=== PATIENT | male | born 1960 | race Caucasian/White ===

== ENCOUNTER 2017-02-28 12:47 | Outpatient (CLI) | payer MEDICAID | END 2017-02-28 12:48 | disposition short-term general hospital (02) | LOC: EMS 12:47 | PROVIDERS: ATTEND Surgery | DX: R07.9 Chest pain, unspecified (principal) | CPT/HCPCS: A0425; A0427 ==

== ENCOUNTER 2017-10-27 01:16 | Inpatient (IN) | payer MEDICAID, OTHER ==
[2017-10-27 01:50] LABS: BASOPHILS # (AUTO) 0.1 10^3/uL (0.0-0.1); BASOPHILS % (AUTO) 1.2 %; EOSINOPHILS # (AUTO) 0.2 10^3/uL (0.0-0.7); EOSINOPHILS % (AUTO) 3.9 %; HGB - HEMOGLOBIN 14.8 g/dL (14.0-18.0); LYMPHOCYTES % (AUTO) 16.2 %; MEAN CORPUSCULAR HEMOGLOBIN 27.7 pg (27.0-31.0); MEAN CORPUSCULAR VOLUME 79.2 fL (80.0-94.0); MEAN PLATELET VOLUME 8.9 fL (7.4-11.4); MONOCYTES # (AUTO) 0.7 10^3/uL (0.0-1.0); MONOCYTES % (AUTO) 12.1 %; NEUTROPHILS # (AUTO) 4.1 10^3/uL (1.5-6.6); NEUTROPHILS % (AUTO) 66.6 %; PLT - PLATELET COUNT 138 10^3/uL (130-450); RED BLOOD COUNT 5.33 10^6/uL (4.70-6.10); RED CELL DISTRIBUTION WIDTH 14.8 % (12.0-15.0); WHITE BLOOD COUNT 6.2 x10^3/uL (4.8-10.8)
[2017-10-27] MEDS ORDERED: SODIUM CHLORIDE 0.9% 1,000 ML IV ONE (01:55)
[2017-10-27] MEDS ORDERED: cefTRIAXone 1 GM in SODIUM CHLORIDE 0.9% MINIBAG 100 ML IV STA (01:55)
[2017-10-27] MEDS ORDERED: DEXAMETHASONE 10 MG/ML VIAL IVP STA (01:55)
--- NOTE | 2017-10-27 01:58 | ED Physician Documentation ---
PD HPI DYSPNEA - Stated complaint Stated Complaint: DIFF BREATHING - Chief complaint Chief Complaint: Resp - History obtained from History obtained from: Patient, Family - History of Present Illness Timing - onset: How many days ago (5) Timing - onset during: Rest Timing - duration: Days (5) Timing - details: Gradual onset, Still present Inciting event(s): URI, Other (severe stress) Improved by: O2, Rest, Sitting up Worsened by: Exertion, Coughing Associated symptoms: Fever, Cough, Chest pain / discomfort, Diaphoresis Similar symptoms before: Has not had sx before Recently seen: Not recently seen - Additional information Additional information: 57-year-old male with a history of previous paroxysmal atrial fibrillation has developed acute congestion cough fever and shortness of breath over the past 5 days. He had a very stressful incident 2 days ago when he found his father on the floor of his apartment and he had apparently been there several days and was decomposing. The hazmat team had to be called into clean up the mess. The patient was sick prior to this and he has had worsening of this feels lightheaded and dizzy and is having trouble getting a breath. Review of Systems Constitutional: reports: Fever, Chills, Myalgias, Fatigue Eyes: denies: Decreased vision Ears: denies: Ear pain Nose: reports: Rhinorrhea / runny nose, Congestion Throat: denies: Sore throat Cardiac: reports: Chest pain / pressure Respiratory: reports: Dyspnea, Cough GI: denies: Nausea, Vomiting : denies: Dysuria Skin: denies: Rash Musculoskeletal: denies: Neck pain, Back pain, Extremity pain Neurologic: reports: Generalized weakness, Headache. denies: Focal weakness, Numbness PD PAST MEDICAL HISTORY - Past Medical History Past Medical History: Yes Cardiovascular: Hypertension, Atrial fibrillation Endocrine/Autoimmune: None Psych: None Musculoskeletal: Osteoarthritis, Chronic back pain - Past Surgical History Past Surgical History: Yes Ortho: Carpal Tunnel surgery - Present Medications Home Medications: Ambulatory Orders Medication Instructions Recorded Confirmed Cartia Xt Er 240 mg PO DAILY 10/27/17 hydroCHLOROthiazide 1 tab PO DAILY 10/27/17 [Hydrochlorothiazide] - Allergies Allergies/Adverse Reactions: Allergies Allergy/AdvReac Type Severity Reaction Status Date / Time cefaclor [From [facility]] Allergy Hives Verified 10/27/17 01:46 - Social History Does the pt smoke?: No Smoking Status: Never smoker Does the pt drink ETOH?: No Does the pt have substance abuse?: No - Immunizations Immunizations are current?: Yes PD ED PE NORMAL - Vitals Vital signs reviewed: Yes (Febrile tachycardic and marked hypertension) - General General: Alert and oriented X 3, Well developed/nourished, Other (57-year-old male with parched lips and nasal cannula oxygen is alert and interactive and hot to the touch.) - HEENT HEENT: Atraumatic, PERRL, EOMI, Other (Both TMs are erythematous along the umbo with flattening of the TM.The mucous membranes are parched) - Neck Neck: Supple, no meningeal sign, No bony TTP - Cardiac Cardiac: No murmur, Other (Regular tachycardia.) - Respiratory Respiratory: Other (Tachypneic at rest with diminished breath sounds) - Abdomen Abdomen: Soft, Non tender - Back Back: No CVA TTP, No spinal TTP - Derm Derm: Normal color, Warm and dry, No rash - Extremities Extremities: No deformity, No edema - Neuro Neuro: No motor deficit, No sensory deficit Eye Opening: Spontaneous Motor: Obeys Commands Verbal: Oriented GCS Score: 15 - Psych Psych: Normal mood, Normal affect Results - Vitals Vitals: Vital Signs - 24 hr 10/27/17 10/27/17 01:18 01:31 Temperature 38.2 C H 37.9 C H Heart Rate 107 H 109 H Respiratory 24 21 Rate Blood Pressure 208/117 H 173/113 H O2 Saturation 93 94 Oxygen O2 Source Nasal cannula Oxygen Flow Rate 2 - EKG (time done) 0127 Rate: Rate (enter#) (107) Rhythm: LAE QRS: LVH Ischemia: ST elevation c/w repol (V2-4), Q waves Compare to prior EKG: Changed from prior EKG (SPT 02-28-17 (EMS tracing) rhythm has converted and q waves inferiorly has developed. ) Computer interpretation: Agree with computer - Labs Labs: Laboratory Tests 10/27/17 10/27/17 10/27/17 01:30 01:30 01:30 WBC 6.2 RBC 5.33 Hgb 14.8 Hct 42.2 MCV 79.2 L MCH 27.7 MCHC 35.0 RDW 14.8 Plt Count 138 MPV 8.9 Neut # 4.1 Lymph # 1.0 L Dunn # 0.7 Eos # 0.2 Baso # 0.1 Absolute Nucleated RBC 0.00 Nucleated RBC % 0.0 Sodium 139 Potassium 3.6 Chloride 105 Carbon Dioxide 23 Anion Gap 11.0 BUN 17 Creatinine 1.4 H Estimated GFR (MDRD) 52 L Glucose 148 H Calcium 9.4 Total Bilirubin 0.6 AST 26 ALT 30 Alkaline Phosphatase 74 Troponin I 0.05 Total Protein 7.0 Albumin 3.8 Globulin 3.2 Albumin/Globulin Ratio 1.2 Lipase 31 - Rads (name of study) 2 veiw chest Radiology: Prelim report reviewed Procedures - IVC sono (time) 0156 Bedside IVC sono: IVC measures (cm) (1.45), IVC collapsed c insp (cm) (complete) , Dehydration (est 1 liter down) PD MEDICAL DECISION MAKING - ED course Complexity details: reviewed old records, reviewed results, re-evaluated patient , considered differential, d/w patient, d/w family ED course: 57-year-old male with a history of paroxysmal atrial fibrillation and hypertension presents with 5 days of cough and fever with hypoxia today. On examination he is found to have bilateral otitis and he is dehydrated and he is administered intravenous fluids dexamethasone and Rocephin a chest x-ray demonstrates an infiltrate in the right base.He is administered oxygen on arrival and he has improvement with the slightest amount of intravenous fluid.Dr. Davis is consulted in the case for admission and she graciously agrees to place patient in the hospital and treat his multiple problems. He does have hypertension that is uncontrolled he has an incomplete workup of his heart disease and he does appear to present late for his medical problems. Departure - Departure Disposition: [address] [facility] DC/Xfer Clinical Impression: Dehydration Pneumonia Qualifiers: Pneumonia type: due to unspecified organism Laterality: right Lung location: lower lobe of lung Qualified Code(s): J18.1 - Lobar pneumonia, unspecified organism Otitis media Qualifiers: Otitis media type: suppurative Chronicity: acute Laterality: bilateral Recurrence: not specified as recurrent Spontaneous tympanic membrane rupture: without spontaneous rupture Qualified Code(s): H66.003 - Acute suppurative otitis media without spontaneous rupture of ear drum, bilateral Hypertension Qualifiers: Hypertension type: essential hypertension Qualified Code(s): I10 - Essential ( primary) hypertension Condition: Stable
[2017-10-27 02:00] LABS: ALBUMIN 3.8 g/dL (3.2-5.5); ALBUMIN/GLOBULIN RATIO 1.2 (1.0-2.2); BILIRUBIN,TOTAL 0.6 mg/dL (0.2-1.0); CALCIUM 9.4 mg/dL (8.5-10.3); CREATININE 1.4 mg/dL (0.6-1.2)
--- NOTE | 2017-10-27 02:20 | XRAY Report ---
EXAM: CHEST RADIOGRAPHY EXAM DATE: 10/27/2017 02:12 AM. CLINICAL HISTORY: Fever and hypoxia. COMPARISON: 11/05/2013. TECHNIQUE: 2 views. FINDINGS: Lungs/Pleura: Mild atelectasis or infiltrate at the right base. No pleural effusion seen. No pneumoth orax. Mediastinum: Mild cardiomegaly. Other: None. IMPRESSION: 1. Mild cardiomegaly with mild right basilar atelectasis or infiltrate. [facility] Referring Provider Line: [phone] SITE ID: [id number]
[2017-10-27] MEDS ORDERED: PROCHLORPERAZINE 10 MG/2 ML VIAL IVP PRN (02:33)
[2017-10-27] MEDS ORDERED: SODIUM CHLORIDE FLUSH 0.9% 10 ML SYRINGE IVP PRN (02:33)
[2017-10-27] MEDS ORDERED: ZOLPIDEM 5 MG TABLET PO PRN (02:33)
[2017-10-27] MEDS ORDERED: MORPHINE 2 MG/ML CARPUJECT IVP PRN (02:33)
[2017-10-27] MEDS ORDERED: NITROGLYCERIN 2% PASTE TOP STA (02:43)
[2017-10-27] MEDS ORDERED: NITROGLYCERIN SL 0.4 MG TABLET SL STA (02:44)
[2017-10-27] MEDS ORDERED: diltiaZEM INJ 125 MG in DEXTROSE 5% 100 ML IV SCH (03:00)
[2017-10-27 03:06] LABS: CHOL/HDL RATIO 6.1 (<5.0); CHOLESTEROL 121 mg/dL; HDL CHOLESTEROL 20 mg/dL; LDL CHOLESTEROL,CALCULATED 81 mg/dL; LDL/HDL RATIO 4.1 (<3.6); VLDL CHOLESTEROL 20 mg/dL
[2017-10-27] MEDS: ACETAMINOPHEN 325 MG TABLET PO PRN ×2 (03:50→08:21)
[2017-10-27] MEDS: DEXTROSE 5%-0.9% NACL 1,000 ML IV SCH ×2 (03:53→14:56)
[2017-10-27] MEDS: METOPROLOL 5 MG/5 ML VIAL IVP SCH ×3 (03:53→14:04)
[2017-10-27] MEDS: guaiFENesin 600 MG TABLET PO SCH ×3 (04:23→21:10)
--- NOTE | 2017-10-27 04:48 | HISTORY & PHYSICAL EXAMINATION ---
DATE OF SERVICE: 10/27/2017 Physician: Elmira Newell MD HISTORY OF PRESENT ILLNESS: This is a 57-year-old, white male with a history of hypertension, paroxysmal, AFib, had recent family trauma when he found his father on the floor and the body was already composing, HAZMAT needed to be called. Even before this sad incident, for 5 days, the patient has had a cough with minimal sputum production, a fever, intermittent palpitations, and then developed severe shortness of breath today and presented to the emergency room. He was found to have an infiltrate, severely elevated blood pressure despite taking medications, and acute renal failure. The patient is being admitted to the ICU for management of unstable angina, community-acquired pneumonia and malignant hypertension. In February 2017, the patient had rapid atrial fibrillation and required transfer to [facility], where he describes having cardioversion x2. An echo was done and some "valve disease was found". He was put on daily aspirin and diltiazem ER, and advised to have an outpatient stress test and follow up at the [facility], [place]. The patient did not go to the [facility] because he was not happy with the clinic and the location was too far. He never had a stress test. He was taking the diltiazem and the daily aspirin, however. Over this past 9 months, he describes recurrences of palpitations that would make him dizzy that would occur approximately once every month. Over the last month, they have occurred approximately twice a week. In the last month, he sought out the help of a new primary care doctor who added HCTZ to his regimen. He has been compliant with these medications. The patient does develop angina, when he gets palpitations and he had an episode of angina that occurred when he saw his father's , decomposing body 3 days ago and reports 1 prolonged episode of angina when he was driving home from work in [place] to [place], along with weakness, pain across his shoulders and shoulder blades, and thought about driving to the emergency room but did not. He was able to drive home. He was so week that his had to help him out of the car, took a hot bath for 2 hours and then felt better, but still had pain across his shoulders for 2 or 3 days. PAST MEDICAL HISTORY: Paroxysmal atrial fibrillation; hypertension, poorly controlled; probable unstable angina by description. FAMILY HISTORY: Coronary artery disease with bypass surgery in his father who also needed a pacemaker and this is the gentleman who recently unwitnessed. On the maternal side, there is also heart disease in a grandparent. The patient has several siblings, one has scoliosis. The patient has 2 children who have allergies. He lives with his . SOCIAL HISTORY: He never smoked cigarettes, uses rare marijuana, drinks no alcohol. 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 REVIEW OF SYSTEMS: Comprehensive review of systems was performed and the pertinent positives are as listed above. ALLERGIES: CEFACLOR THAT CAUSED HIVES. MEDICATIONS AT HOME 1. Cartia ER 240 mg p.o. daily. 2. Hydrochlorothiazide 25 mg p.o. daily. 3. Aspirin, unknown dose daily. PHYSICAL EXAMINATION GENERAL: White male who is in no distress currently in the ICU. VITAL SIGNS: In the emergency room he had respiratory rate of 24, O2 saturation 89% on room air, heart rate 107 in sinus tachycardia, febrile at 38.2, and blood pressure of 208/117. HEENT: In the ER showed redness of his tympanic membrane. His oral mucosa is moist. NECK: Shows no thyromegaly, adenopathy, carotid bruits or JVD. CHEST: Diminished breath sounds at the right base, otherwise clear. No wheezing. HEART: Heart sounds are normal. No audible murmur. ABDOMEN: Soft, obese. No organomegaly or tenderness. EXTREMITIES: Trace pedal edema. No clubbing or cyanosis. NEUROLOGIC: Intact. LABORATORIES: Normal electrolytes, BUN 17, creatinine 1.4. There was no magnesium. Total cholesterol 121, LDL 81, triglycerides 101. Negative influenza serology. White blood count 6.2 with a normal differential. Hemoglobin 14.8 with a low MCV of 79. Platelet count normal. No INR was done. EKG: Sinus tachycardia. Inferior Q-waves are present which were not present on his February 2017 EKG, when he was in atrial fibrillation. Chest x-ray: Right lower lobe infiltrate. IMPRESSION/DIAGNOSES 1. Community-acquired pneumonia with desaturation and nonproductive cough. 2. Unstable angina with accelerating symptoms. 3. Poorly controlled hypertension. 4. Acute renal failure. 5. Tachycardia. 6. History of paroxysmal atrial fibrillation, on aspirin (CHADS score equals 1 for hypertension). PLAN: Place the patient in the ICU for close monitoring, and especially management of his hypertension. Begin beta blockers which will help his angina, as well as heart rate and blood pressure. Begin nitro paste, which will help his angina and blood pressure. Continue his p.o. Cardizem. Continue his daily aspirin for angina and for atrial fibrillation stroke prophylaxis. Add heparin therapeutic subcutaneous dose because of the angina. Cycle troponins x3 to rule out an acute event and follow his EKG for changes. Obtain an echo. Treat his pneumonia with IV ceftriaxone and IV Zithromax. Obtain sputum and blood cultures prior to antibiotics. Add Mucinex and Robitussin as needed for his symptoms. Supplemental oxygen and if pulmonary toilet is needed this will be ordered. The patient will need transfer for coronary angiogram given his accelerated angina symptoms, abnormal EKG already showing evidence of a scar, but this will have to follow resolution of his pneumonia. DEEP VENOUS THROMBOSIS PROPHYLAXIS: SCDs and therapeutic subcutaneous heparin. CODE STATUS: FULL CODE. ATTESTATION: The patient is expected to be discharged or transferred to another facility within 96 hours: Yes. TD: 10/27/2017 04:47 LISA
[2017-10-27] MEDS ORDERED: AZITHROMYCIN INJ 500 MG in SODIUM CHLORIDE 0.9% 250 ML IV SCH (06:00)
[2017-10-27 06:01] LABS: BASOPHILS % (AUTO) 0.3 %; EOSINOPHILS % (AUTO) 0.4 %; HGB - HEMOGLOBIN 14.6 g/dL (14.0-18.0); LYMPHOCYTES # (AUTO) 0.6 10^3/uL (1.5-3.5); LYMPHOCYTES % (AUTO) 7.9 %; MEAN CORPUSCULAR HEMOGLOBIN 26.8 pg (27.0-31.0); MEAN CORPUSCULAR HGB CONC 33.6 g/dL (32.0-36.0); MEAN CORPUSCULAR VOLUME 79.9 fL (80.0-94.0); MONOCYTES # (AUTO) 0.1 10^3/uL (0.0-1.0); NEUTROPHILS # (AUTO) 6.3 10^3/uL (1.5-6.6); NEUTROPHILS % (AUTO) 89.4 %; PLT - PLATELET COUNT 150 10^3/uL (130-450); RED BLOOD COUNT 5.43 10^6/uL (4.70-6.10); RED CELL DISTRIBUTION WIDTH 14.9 % (12.0-15.0)
[2017-10-27 06:05] LABS: CALCIUM 8.9 mg/dL (8.5-10.3); CREATININE 1.2 mg/dL (0.6-1.2); MAGNESIUM 1.8 mg/dL (1.7-2.8)
[2017-10-27 06:07] LABS: INR 1.1 (0.8-1.2); PT - PROTHROMBIN TIME 12.4 secs (9.9-12.6)
[2017-10-27] MEDS: HEPARIN 5,000 UNIT/ML VIAL SUBQ SCH ×2 (06:14→14:07)
[2017-10-27] MEDS: SODIUM CHLORIDE FLUSH 0.9% 10 ML SYRINGE IVP SCH ×3 (06:14→21:11)
[2017-10-27] MEDS ORDERED: ASPIRIN EC 325 MG TABLET PO SCH (08:00)
[2017-10-27] MEDS: diltiaZEM CD 120 MG CAPSULE PO SCH (08:21)
[2017-10-27] MEDS: AZITHROMYCIN INJ 500 MG in SODIUM CHLORIDE 0.9% 250 ML IV SCH (08:58)
[2017-10-27] MEDS: FAMOTIDINE 20 MG TABLET PO SCH (08:58)
--- NOTE | 2017-10-27 10:11 | XRAY Report ---
FRONTAL CHEST: 10/27/2017 CLINICAL INDICATION: Followup pneumonia. COMPARISON: Film of 0157 hours the same day. FINDINGS: Frontal view of the chest demonstrates a mildly enlarged cardiac silhouette. Patchy atelectasis or infiltrate at the right base appears unchanged. No new consolidation, effusion, or pneumothorax is present. IMPRESSION: NO EVIDENT CHANGE IN PATCHY RIGHT BASILAR AIRSPACE DISEASE AND MILD CARDIOMEGALY. TD: 10/27/2017 10:10
[2017-10-27] MEDS ORDERED: DEXTROSE 5%-0.9% NACL 1,000 ML IV SCH (20:24)
[2017-10-27] MEDS: ENOXAPARIN 120 MG/0.8 ML SYRINGE SUBQ SCH (21:09)
[2017-10-27] MEDS: ISOSORBIDE MONONITRATE ER 30 MG TABLET PO SCH (21:09)
[2017-10-27] MEDS: CARVEDILOL 12.5 MG TABLET PO SCH (21:10)
[2017-10-27] MEDS: cefTRIAXone 1 GM in SODIUM CHLORIDE 0.9% MINIBAG 100 ML IV SCH (21:11)
[2017-10-28 04:45] LABS: BASOPHILS % (AUTO) 0.2 %; HGB - HEMOGLOBIN 13.7 g/dL (14.0-18.0); LYMPHOCYTES # (AUTO) 1.2 10^3/uL (1.5-3.5); LYMPHOCYTES % (AUTO) 18.5 %; MEAN CORPUSCULAR HEMOGLOBIN 27.2 pg (27.0-31.0); MEAN CORPUSCULAR HGB CONC 34.4 g/dL (32.0-36.0); MEAN CORPUSCULAR VOLUME 79.2 fL (80.0-94.0); MEAN PLATELET VOLUME 9.3 fL (7.4-11.4); MONOCYTES # (AUTO) 0.5 10^3/uL (0.0-1.0); MONOCYTES % (AUTO) 7.5 %; NEUTROPHILS # (AUTO) 4.6 10^3/uL (1.5-6.6); NEUTROPHILS % (AUTO) 73.8 %; PLT - PLATELET COUNT 163 10^3/uL (130-450); RED BLOOD COUNT 5.04 10^6/uL (4.70-6.10); RED CELL DISTRIBUTION WIDTH 14.7 % (12.0-15.0); WHITE BLOOD COUNT 6.2 x10^3/uL (4.8-10.8)
[2017-10-28 04:53] LABS: ALBUMIN 3.6 g/dL (3.2-5.5); ALBUMIN/GLOBULIN RATIO 1.1 (1.0-2.2); ALKALINE PHOSPHATASE 64 IU/L (42-121); ALT ALANINE AMINOTRANSFERASE 26 IU/L (10-60); AST ASPARTATE AMINOTRANSFERASE 21 IU/L (10-42); BILIRUBIN,TOTAL 0.3 mg/dL (0.2-1.0); BUN - BLOOD UREA NITROGEN 20 mg/dL (6-20); CALCIUM 9.1 mg/dL (8.5-10.3); CARBON DIOXIDE - CO2 21 mmol/L (21-32); CHLORIDE 106 mmol/L (101-111); CREATININE 1.1 mg/dL (0.6-1.2); GFR - MDRD 69 (>89); GLUCOSE 217 mg/dL (70-100); MAGNESIUM 2.1 mg/dL (1.7-2.8); PHOSPHORUS 2.4 mg/dL (2.5-4.6); SODIUM 138 mmol/L (135-145); TOTAL PROTEIN 6.8 g/dL (6.7-8.2)
[2017-10-28 04:59] LABS: HB2 TOTAL 15.1 g/dL; HEMOGLOBIN A1C 0.81 g/dL; HEMOGLOBIN A1C % 7.1 % (4.6-6.2)
[2017-10-28] MEDS: SODIUM CHLORIDE FLUSH 0.9% 10 ML SYRINGE IVP SCH ×3 (06:10→20:44)
[2017-10-28] MEDS: NEUTRA-PHOS 250 MG TABLET PO SCH ×2 (08:17→09:50)
[2017-10-28] MEDS: ISOSORBIDE MONONITRATE ER 30 MG TABLET PO SCH ×2 (08:59→20:41)
[2017-10-28] MEDS: FAMOTIDINE 20 MG TABLET PO SCH (08:59)
[2017-10-28] MEDS: diltiaZEM CD 120 MG CAPSULE PO SCH (08:59)
[2017-10-28] MEDS: CARVEDILOL 12.5 MG TABLET PO SCH ×2 (09:00→20:41)
[2017-10-28] MEDS: ENOXAPARIN 120 MG/0.8 ML SYRINGE SUBQ SCH ×2 (09:00→20:41)
[2017-10-28] MEDS: ASPIRIN EC 325 MG TABLET PO SCH (09:00)
[2017-10-28] MEDS: cefTRIAXone 1 GM in SODIUM CHLORIDE 0.9% MINIBAG 100 ML IV SCH (09:01)
[2017-10-28] MEDS: guaiFENesin/DEXTROMETHORPHAN 10 ML UDC PO PRN (09:49)
[2017-10-28] MEDS: guaiFENesin 600 MG TABLET PO SCH ×2 (09:53→20:41)
[2017-10-28] MEDS: AZITHROMYCIN INJ 500 MG in SODIUM CHLORIDE 0.9% 250 ML IV SCH (10:04)
[2017-10-28] MEDS: ACETAMINOPHEN 325 MG TABLET PO PRN ×2 (10:28→18:26)
--- NOTE | 2017-10-28 13:31 | PROVIDER PROGRESS NOTE ---
Subjective - Prog Note Date Prog Note Date: 10/28/17 Prog Note Time: 13:30 - Subjective Pt reports feeling: Improved Current Medications - Current Medications Current Medications: Acetaminophen, aspirin, azithromycin, carvedilol, ceftriaxone, diltiazem, Lovenox, famotidine, guaifenesin, dextromethorphan,Isosorbide, morphine, nitroglycerin, prochlorperazine, sodium chloride, zolpidem Objective - Vital Signs/Intake & Output Reviewed Vital Signs: Yes Vital Signs: Vital Signs Temp Pulse Resp BP Pulse Ox 10/28/17 13:00 49 L 6 L 74 L 10/28/17 11:00 36.8 C 72 24 145/95 H 97 10/28/17 10:09 67 163/95 H 96 Intake & Output: Intake & Output 10/25/17 10/26/17 10/27/17 10/28/17 23:59 23:59 23:59 23:59 Intake Total 5895.000 1920 Output Total 3250 850 Balance 2645.000 1070 - Objective General Appearance: positive: No acute distress, Alert Eyes Bilateral: positive: Normal inspection, PERRL, EOMI, No lid inflammation, Conjunctivae nml, No scleral icterus ENT: positive: ENT inspection nml, Pharynx nml, No signs of dehydration Neck: positive: Nml inspection, Thyroid nml, No JVD, Trachea midline. negative : Thyromegaly Respiratory: positive: Chest non-tender, No respiratory distress, Breath sounds nml. negative: Wheezes, Rales, Rhonchi Cardiovascular: positive: Regular rate & rhythm, No murmur, No gallop Abdomen: positive: Non-tender, No organomegaly, Nml bowel sounds, No distention. negative: Guarding, Rebound Back: positive: Nml inspection. negative: CVA tenderness (R), CVA tenderness (L ) Skin: positive: Color nml, No rash, Warm, Dry. negative: Cyanosis Extremities: positive: Non-tender, Full ROM, Nml appearance, No pedal edema Neurologic/Psychiatric: positive: Oriented x3, CN's nml (2-12), Motor nml, Sensation nml, Mood/affect nml - Lab Results Fish Bones: 10/28/17 04:20 10/28/17 04:20 Other Labs: Lab Results x24hrs 10/28/17 10/28/17 10/28/17 Range/Units 11:53 04:20 04:20 WBC (4.8-10.8) x10^3/uL RBC (4.70-6.10) 10^6/uL Hgb (14.0-18.0) g/dL Hct (42.0-52.0) % MCV (80.0-94.0) fL MCH (27.0-31.0) pg MCHC (32.0-36.0) g/dL RDW (12.0-15.0) % Plt Count (130-450) 10^3/uL MPV (7.4-11.4) fL Neut # (1.5-6.6) 10^3/uL Lymph # (1.5-3.5) 10^3/uL Schuyler # (0.0-1.0) 10^3/uL Eos # (0.0-0.7) 10^3/uL Baso # (0.0-0.1) 10^3/uL Absolute Nucleated RBC x10^3/uL Nucleated RBC % /100WBC Sodium 138 (135-145) mmol/L Potassium 3.6 (3.5-5.0) mmol/L Chloride 106 (101-111) mmol/L Carbon Dioxide 21 (21-32) mmol/L Anion Gap 11.0 (6-13) BUN 20 (6-20) mg/dL Creatinine 1.1 (0.6-1.2) mg/dL Estimated GFR (MDRD) 69 L (>89) Glucose 217 H (70-100) mg/dL POC Whole Bld Glucose 192 H (70 - 100) mg/dL Glycated Hemoglobin 7.1 H (4.6-6.2) % Estim Average Glucose 157 H (70-100) Calcium 9.1 (8.5-10.3) mg/dL Ionized Calcium NO Phosphorus 2.4 L (2.5-4.6) mg/dL Magnesium 2.1 (1.7-2.8) mg/dL Total Bilirubin 0.3 (0.2-1.0) mg/dL AST 21 (10-42) IU/L ALT 26 (10-60) IU/L Alkaline Phosphatase 64 (42-121) IU/L Total Protein 6.8 (6.7-8.2) g/dL Albumin 3.6 (3.2-5.5) g/dL Globulin 3.2 (2.1-4.2) g/dL Albumin/Globulin Ratio 1.1 (1.0-2.2) 10/28/17 Range/Units 04:20 WBC 6.2 (4.8-10.8) x10^3/uL RBC 5.04 (4.70-6.10) 10^6/uL Hgb 13.7 L (14.0-18.0) g/dL Hct 40.0 L (42.0-52.0) % MCV 79.2 L (80.0-94.0) fL MCH 27.2 (27.0-31.0) pg MCHC 34.4 (32.0-36.0) g/dL RDW 14.7 (12.0-15.0) % Plt Count 163 (130-450) 10^3/uL MPV 9.3 (7.4-11.4) fL Neut # 4.6 (1.5-6.6) 10^3/uL Lymph # 1.2 L (1.5-3.5) 10^3/uL Schuyler # 0.5 (0.0-1.0) 10^3/uL Eos # 0.0 (0.0-0.7) 10^3/uL Baso # 0.0 (0.0-0.1) 10^3/uL Absolute Nucleated RBC 0.01 x10^3/uL Nucleated RBC % 0.1 /100WBC Sodium (135-145) mmol/L Potassium (3.5-5.0) mmol/L Chloride (101-111) mmol/L Carbon Dioxide (21-32) mmol/L Anion Gap (6-13) BUN (6-20) mg/dL Creatinine (0.6-1.2) mg/dL Estimated GFR (MDRD) (>89) Glucose (70-100) mg/dL POC Whole Bld Glucose (70 - 100) mg/dL Glycated Hemoglobin (4.6-6.2) % Estim Average Glucose (70-100) Calcium (8.5-10.3) mg/dL Ionized Calcium Phosphorus (2.5-4.6) mg/dL Magnesium (1.7-2.8) mg/dL Total Bilirubin (0.2-1.0) mg/dL AST (10-42) IU/L ALT (10-60) IU/L Alkaline Phosphatase (42-121) IU/L Total Protein (6.7-8.2) g/dL Albumin (3.2-5.5) g/dL Globulin (2.1-4.2) g/dL Albumin/Globulin Ratio (1.0-2.2) - Diagnostic Imaging Diagnostic Imaging Results: positive: Final report reviewed Diagnostic Imaging Comments: EXAM: CHEST RADIOGRAPHY EXAM DATE: 10/27/2017 02:12 AM. CLINICAL HISTORY: Fever and hypoxia. COMPARISON: 11/05/2013. TECHNIQUE: 2 views. FINDINGS: Lungs/Pleura: Mild atelectasis or infiltrate at the right base. No pleural effusion seen. No pneumothorax. Mediastinum: Mild cardiomegaly. Other: None. IMPRESSION: 1. Mild cardiomegaly with mild right basilar atelectasis or infiltrate. EXAM: [id number] ([id number]) FRONTAL CHEST: 10/27/2017 CLINICAL INDICATION: Followup pneumonia. COMPARISON: Film of 0157 hours the same day. FINDINGS: Frontal view of the chest demonstrates a mildly enlarged cardiac silhouette. Patchy atelectasis or infiltrate at the right base appears unchanged. No new consolidation, effusion, or pneumothorax is present. IMPRESSION: NO EVIDENT CHANGE IN PATCHY RIGHT BASILAR AIRSPACE DISEASE AND MILD CARDIOMEGALY Assessment/Plan - Problem List (1) Pneumonia Impression: The patient's leukocyte count 6.2, he is afebrile, and is breathing easily on room air. We will continue ceftriaxone and azithromycin. Qualifiers: Pneumonia type: due to unspecified organism Laterality: right Lung location: lower lobe of lung Qualified Code(s): J18.1 - Lobar pneumonia, unspecified organism (2) Coronary artery disease Impression: It appears that the patient has had a recent myocardial infarction, inferior wall, with new wall motion abnormality and a new Q-wave. It is believed that this event happened about 3 or 4 months ago. (3) Unstable angina Impression: Patient denies any chest pain or shortness of breath at this time.There have not been any new events of unstable angina since his admission to the hospital. (4) Acute renal failure Impression: Corrected, creatinine 1.1 today. (5) Paroxysmal A-fib Impression: No known atrial fibrillation events this hospitalization. Pt has had several runs of V tach however, all seemingly occuring during sleep apnea events. (6) Diabetes mellitus Impression: Newly diagnosed, HgbA1C is 7.1, which indicates an average BS of 157. I have ordered diabetes education, will start with lifestyle modification. (7) Hypertension Impression: The patient is already on Imdur, Cardizem, and Coreg. I will add a diuretic, HCTZ. Qualifiers: Hypertension type: essential hypertension Qualified Code(s): I10 - Essential (primary) hypertension (8) Microcytosis Impression: Patient barely qualifies for this diagnosis with an MCV of 79.9. Will do an iron study panel. (9) Sleep apnea Impression: Pt was diagnosed with sleep apnea approximately 10 years ago, has been noncompliant the entire time. Patient has had multiple runs of ventricular tachycardia during apneic events during this hospitalization. I have had several discussions with him regarding CPAP and its necessity. I have ordered a CPAP machine for him and respiratory therapy is working on finding a mask that does not cause him too much distress.
[2017-10-28] MEDS: hydroCHLOROthiazide 25 MG TABLET PO SCH (14:34)
[2017-10-28 14:39] LABS: % IRON SATURATION 19 % (20-50); IRON 54 ug/dL (45-182); TOTAL IRON BINDING CAPACITY 284 ug/dL (250-450); TRANSFERRIN 203 mg/dL (180-329)
[2017-10-28] MEDS: NITROGLYCERIN SL 0.4 MG TABLET SL PRN ×4 (15:48→18:41)
[2017-10-28] MEDS ORDERED: FUROSEMIDE 100 MG/10 ML VIAL IVP ONE (18:34)
[2017-10-28] MEDS: niCARdipine 20 MG/200 ML 20 MG/200 ML BAG IV SCH ×2 (18:50→21:00)
[2017-10-28] MEDS ORDERED: niCARdipine 20 MG/200 ML 20 MG/200 ML BAG IV ONE (18:51)
[2017-10-29] MEDS: niCARdipine 20 MG/200 ML 20 MG/200 ML BAG IV SCH ×3 (01:09→09:06)
[2017-10-29 05:49] LABS: ALBUMIN 4.1 g/dL (3.2-5.5); ALBUMIN/GLOBULIN RATIO 1.3 (1.0-2.2); ALKALINE PHOSPHATASE 65 IU/L (42-121); ALT ALANINE AMINOTRANSFERASE 32 IU/L (10-60); AST ASPARTATE AMINOTRANSFERASE 23 IU/L (10-42); BILIRUBIN,TOTAL 0.6 mg/dL (0.2-1.0); BUN - BLOOD UREA NITROGEN 20 mg/dL (6-20); CALCIUM 9.4 mg/dL (8.5-10.3); CARBON DIOXIDE - CO2 25 mmol/L (21-32); CHLORIDE 100 mmol/L (101-111); CREATININE 1.3 mg/dL (0.6-1.2); GFR - MDRD 57 (>89); GLUCOSE 139 mg/dL (70-100); SODIUM 139 mmol/L (135-145); TOTAL PROTEIN 7.2 g/dL (6.7-8.2)
[2017-10-29 06:09] LABS: MAGNESIUM 1.9 mg/dL (1.7-2.8); PHOSPHORUS 2.6 mg/dL (2.5-4.6)
[2017-10-29] MEDS: SODIUM CHLORIDE FLUSH 0.9% 10 ML SYRINGE IVP SCH ×3 (06:15→21:26)
[2017-10-29] MEDS ORDERED: POTASSIUM CHLORIDE 20 MEQ TABLET PO SCH (07:00)
[2017-10-29] MEDS ORDERED: LORazepam 2 MG/ML VIAL IVP PRN (09:12)
[2017-10-29] MEDS ORDERED: NIFEdipine ER 30 MG TABLET PO SCH (10:00)
[2017-10-29] MEDS: cefTRIAXone 1 GM in SODIUM CHLORIDE 0.9% MINIBAG 100 ML IV SCH (10:15)
[2017-10-29] MEDS: guaiFENesin/DEXTROMETHORPHAN 10 ML UDC PO PRN ×2 (10:18→10:23)
[2017-10-29] MEDS: diltiaZEM CD 120 MG CAPSULE PO SCH (10:20)
[2017-10-29] MEDS: FAMOTIDINE 20 MG TABLET PO SCH (10:21)
[2017-10-29] MEDS: ASPIRIN EC 325 MG TABLET PO SCH (10:21)
[2017-10-29] MEDS: hydroCHLOROthiazide 25 MG TABLET PO SCH (10:21)
[2017-10-29] MEDS: CARVEDILOL 12.5 MG TABLET PO SCH ×2 (10:21→21:21)
[2017-10-29] MEDS: ISOSORBIDE MONONITRATE ER 30 MG TABLET PO SCH ×2 (10:21→21:27)
[2017-10-29] MEDS: ENOXAPARIN 120 MG/0.8 ML SYRINGE SUBQ SCH ×2 (10:23→21:26)
[2017-10-29] MEDS: guaiFENesin 600 MG TABLET PO SCH ×2 (10:24→21:27)
[2017-10-29] MEDS: AZITHROMYCIN INJ 500 MG in SODIUM CHLORIDE 0.9% 250 ML IV SCH (11:20)
--- NOTE | 2017-10-29 18:17 | PROVIDER PROGRESS NOTE ---
Subjective - Prog Note Date Prog Note Date: 10/29/17 Prog Note Time: 15:25 - Subjective Pt reports feeling: No change (Patient feels well, no new complaints) Current Medications - Current Medications Current Medications: Acetaminophen, aspirin, azithromycin, Coreg, ceftriaxone, diltiazem, Lovenox, Pepcid, furosemide, Mucinex, hydrochlorothiazide, isosorbide, lorazepam, morphine, nifedipine, Nitroglycerin, potassium chloride, Compazine, sodium chloride, Ambien Objective - Vital Signs/Intake & Output Reviewed Vital Signs: Yes Vital Signs: Vital Signs Temp Pulse Resp BP BP Pulse Ox 10/29/17 17:00 75 21 115/67 96 10/29/17 15:00 36.8 C 75 19 128/74 90 L Intake & Output: Intake & Output 10/26/17 10/27/17 10/28/17 10/29/17 23:59 23:59 23:59 23:59 Intake Total 5895.000 2680.000 1765.0 Output Total 3250 4350 825 Balance 2645.000 -1670.000 940.0 - Objective General Appearance: positive: No acute distress, Alert Eyes Bilateral: positive: Normal inspection, PERRL, EOMI, No lid inflammation, Conjunctivae nml, No scleral icterus ENT: positive: ENT inspection nml, Pharynx nml, No signs of dehydration. negative: Oral lesions Neck: positive: Nml inspection, Thyroid nml, No JVD, Trachea midline. negative : Thyromegaly Respiratory: positive: Chest non-tender, No respiratory distress, Breath sounds nml. negative: Wheezes, Rales, Rhonchi Cardiovascular: positive: Regular rate & rhythm, No murmur, No gallop Abdomen: positive: Non-tender, No organomegaly, Nml bowel sounds, No distention. negative: Tenderness Back: positive: Nml inspection. negative: CVA tenderness (R), CVA tenderness (L ) Skin: positive: Color nml, No rash, Warm, Dry. negative: Cyanosis Extremities: positive: Non-tender, Full ROM, Nml appearance Neurologic/Psychiatric: positive: Oriented x3, CN's nml (2-12), Motor nml, Sensation nml, Mood/affect nml - Lab Results Fish Bones: 10/28/17 04:20 10/29/17 04:57 Other Labs: Lab Results x24hrs 10/29/17 10/29/17 Range/Units 04:57 04:57 Sodium 139 (135-145) mmol/L Potassium 3.0 L (3.5-5.0) mmol/L Chloride 100 L (101-111) mmol/L Carbon Dioxide 25 (21-32) mmol/L Anion Gap 14.0 H (6-13) BUN 20 (6-20) mg/dL Creatinine 1.3 H (0.6-1.2) mg/dL Estimated GFR (MDRD) 57 L (>89) Glucose 139 H (70-100) mg/dL Calcium 9.4 (8.5-10.3) mg/dL Ionized Calcium NO Phosphorus 2.6 (2.5-4.6) mg/dL Magnesium 1.9 (1.7-2.8) mg/dL Total Bilirubin 0.6 (0.2-1.0) mg/dL AST 23 (10-42) IU/L ALT 32 (10-60) IU/L Alkaline Phosphatase 65 (42-121) IU/L Total Protein 7.2 (6.7-8.2) g/dL Albumin 4.1 (3.2-5.5) g/dL Globulin 3.1 (2.1-4.2) g/dL Albumin/Globulin Ratio 1.3 (1.0-2.2) Assessment/Plan - Problem List (1) Pneumonia Impression: The patient's leukocyte count 6.2, he is afebrile, and is breathing easily on room air. We will continue ceftriaxone and azithromycin. Qualifiers: Pneumonia type: due to unspecified organism Laterality: right Lung location: lower lobe of lung Qualified Code(s): J18.1 - Lobar pneumonia, unspecified organism (2) Coronary artery disease Impression: It appears that the patient has had a recent myocardial infarction, inferior wall, with new wall motion abnormality and a new Q-wave. It is believed that this event happened about 3 or 4 months ago. The plan at this time is for the patient to be transferred Tuesday for an angiogram Tuesday. (3) Unstable angina Impression: Patient denies any chest pain or shortness of breath at this time.There have not been any new events of unstable angina since his admission to the hospital. (4) Acute renal failure Impression: The patient's creatinine yesterday was 1.1, it is 1.3 today. I have ordered some IV fluids to try to help hydrate the patient's kidneys. (5) Paroxysmal A-fib Impression: No known atrial fibrillation events this hospitalization. Pt has had several runs of V tach however, all seemingly occuring during sleep apnea events. The patient used the BiPAP machine last night for 2 hours. (6) Diabetes mellitus Impression: Newly diagnosed, HgbA1C is 7.1, which indicates an average BS of 157. I have ordered diabetes education, will start with lifestyle modification. Qualifiers: Diabetes mellitus complication status: with circulatory complication (7) Hypertension Impression: The patient was already on Imdur, Cardizem, and Coreg and I added a diuretic, HCTZ.Unfortunately this still was not effective enough and I had to place the patient a nicardipine drip. I converted him over to nifedipine this morning and his blood pressure has been running Normal/low normal. The last blood pressure was 115/67. Qualifiers: Hypertension type: essential hypertension Qualified Code(s): I10 - Essential (primary) hypertension (8) Microcytosis Impression: And iron study panel was performed which was essentially normal with a borderline low percent saturation. I will start him on an iron supplement. (9) Sleep apnea Impression: The patient was able to tolerate the BiPAP for about 2 hours last night. We will try again tonight with some Valium.
[2017-10-29] MEDS: POTASSIUM CHLORIDE 20 MEQ TABLET PO SCH (18:40)
[2017-10-29] MEDS: NIFEdipine ER 30 MG TABLET PO SCH (21:27)
[2017-10-29] MEDS ORDERED: CARVEDILOL 12.5 MG TABLET PO SCH (21:40)
[2017-10-30 06:55] LABS: CALCIUM 9.2 mg/dL (8.5-10.3); CREATININE 1.4 mg/dL (0.6-1.2); MAGNESIUM 2.2 mg/dL (1.7-2.8)
[2017-10-30] MEDS: hydroCHLOROthiazide 25 MG TABLET PO SCH (08:27)
[2017-10-30] MEDS: POTASSIUM CHLORIDE 20 MEQ TABLET PO SCH (08:27)
[2017-10-30] MEDS: ASPIRIN EC 325 MG TABLET PO SCH (08:27)
[2017-10-30] MEDS: SODIUM CHLORIDE FLUSH 0.9% 10 ML SYRINGE IVP SCH ×2 (08:27→14:18)
[2017-10-30] MEDS: guaiFENesin 600 MG TABLET PO SCH (08:28)
[2017-10-30] MEDS: ISOSORBIDE MONONITRATE ER 30 MG TABLET PO SCH (08:28)
[2017-10-30] MEDS: FAMOTIDINE 20 MG TABLET PO SCH (08:28)
[2017-10-30] MEDS: NIFEdipine ER 30 MG TABLET PO SCH (08:28)
[2017-10-30] MEDS: ENOXAPARIN 120 MG/0.8 ML SYRINGE SUBQ SCH (08:51)
[2017-10-30] MEDS: cefTRIAXone 1 GM in SODIUM CHLORIDE 0.9% MINIBAG 100 ML IV SCH (08:55)
[2017-10-30] MEDS: AZITHROMYCIN INJ 500 MG in SODIUM CHLORIDE 0.9% 250 ML IV SCH (10:00)
--- NOTE | 2017-10-30 15:30 | Discharge Plan ---
Discharge Plan Disposition: 02 Transfer Acute Care Hosp Condition: Stable Diet: Cardiac Activity Restrictions: Activity as Tolerated Shower Restrictions: No Driving Restrictions: No Weight Bearing: Full Weight Instruction Topics: Diabetes Healthy Meals, Snoring Sleep Apnea, CPAP, Diabetes Exercise Get Started, Diabetes Living Life, Diabetes Dx, Prevent Guidelines Men 50 to 64 Additional Instructions or Follow Up instructions: You will be transferred over to [facility] under the care of Dr. Agustin Gutierrez and Dr. Lara, your folder stitcher operator. You are scheduled to have an angiogram tomorrow. No Smoking: If you smoke, Please STOP! Call for help. Follow-up with: Walter Keller DO [Primary Care Provider] -
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
[2017-10-30 17:04] VITALS: BP 144/82
== END 2017-10-30 17:25 | disposition short-term general hospital (02) | DRG 194 ==
LOC: ED 01:16 → ICU 02:33
PROVIDERS: ADMIT Internal Medicine; ATTEND Hospitalist
DX: J18.9 Pneumonia, unspecified organism (principal); I25.110 Atherosclerotic heart disease of native coronary artery with unstable angina pectoris; N17.9 Acute kidney failure, unspecified; I10 Essential (primary) hypertension; I48.0 Paroxysmal atrial fibrillation; E11.9 Type 2 diabetes mellitus without complications; G47.30 Sleep apnea, unspecified; R71.8 Other abnormality of red blood cells; E86.0 Dehydration
CPT/HCPCS: 36415; 71045; 71046; 80048; 80053; 80061; 83036; 83540; 83690; 83721; 83735; 84100; 84466; 84484; 85025; 85610; 87040; 87070; 87150; 87205; 87275; 87276; 93005; 93306; 94660; 96365; 96375; 99284; 99285